=== PATIENT | female | born 1965 | race Caucasian/White ===

== ENCOUNTER 2017-03-08 07:18 | Emergency (ER) | payer BC ==
[2017-03-08 07:26] VITALS: BP 107/79
--- NOTE | 2017-03-08 08:38 | UC ---
Samir Green Billy, scrib[facility] for [facility] on 03/08/17 at 0830 . General HPI - HPI Summary HPI Summary: Patient is a 51 year-old female coming to [facility] for evaluation of three days of sinus congestion, itchy throat, cough, and fever. She measured a temperature of 101.6F at home last night. She reports frequent contact with sick individuals at work. Denies any recent antibiotic treatment. Denies PMHx of respiratory illness. Note: Vital signs stable, O2 sat 97% on room air, 3/10 discomfort, heavy everyday smoker, allergic to sulfa. Nurse's Note: pt states that she began to feel ill sunday. pt had temp max 101.6. pt states the her ears are plugged, cohen, cough, throat itching. - History of Current Complaint Chief Complaint: UCRespiratory Stated Complaint: EARS/NOSE/THROAT CONGEST Time Seen by Provider: 03/08/17 08:23 Hx Obtained From: Patient Onset/Duration: Gradual Onset, Lasting Days, Still Present Timing: Constant Onset Severity: Moderate Current Severity: Moderate Pain Intensity: 3 - Allergy/Home Medications Allergies/Adverse Reactions: Allergies Allergy/AdvReac Type Severity Reaction Status Date / Time Sulfamethoxazole AdvReac Diarrhea Verified 09/19/16 07:39 w/Trimethoprim [From Bactrim] PMH/Surg Hx/FS Hx/Imm Hx Endocrine History Of: Reports: Thyroid Disease - partial thyroid removal Denies: Diabetes Cardiovascular History Of: Denies: Cardiac Disorders, Hypertension, Pacemaker/ICD Respiratory History Of: Denies: COPD, Asthma GI/ History Of: Denies: Ulcer, Renal Disease - Surgical History Surgical History: Yes Surgery Procedure, Year, and Place: CYST - COCCYX,. APPENDECTOMY, BLADDER SUSPENSION, HYSTERECTOMY,. CARPAL TUNNEL - Lt. partial thyroidectomy - Family History Known Family History: Positive: Cardiac Disease, Hypertension, Other - Alzheimers - Social History Occupation: Employed Full-time Alcohol Use: Rare Substance Use Type: None Smoking Status (MU): Heavy Every Day Tobacco Smoker Type: Cigarettes Amount Used/How Often: 1 ppd Length of Time of Smoking/Using Tobacco: 30 yrs Have You Smoked in the Last Year: Yes Household Exposure Type: Cigarettes Review of Systems Constitutional: Fever Skin: Negative Eyes: Negative ENT: Other - sinus congestion, itchy throat Respiratory: Cough Cardiovascular: Negative Gastrointestinal: Diarrhea - hx of IBS Genitourinary: Negative Motor: Negative Neurovascular: Negative Musculoskeletal: Negative Neurological: Negative Psychological: Negative All Other Systems Reviewed And Are Negative: Yes Physical Exam Triage Information Reviewed: Yes Appearance: Well-Appearing, No Pain Distress, Well-Nourished Vital Signs: Initial Vital Signs Temp 97.0 F 03/08/17 07:22 Pulse 97 03/08/17 07:22 Resp 18 03/08/17 07:22 BP 107/79 03/08/17 07:22 Pulse Ox 97 03/08/17 07:22 Vital Signs Reviewed: Yes Eyes: Positive: Conjunctiva Clear ENT: Positive: Pharyngeal erythema - Mild, TMs normal, Other: - Maxillary sinus tenderness to palpation.. Negative: Muffled/hoarse voice Neck: Positive: Supple, No Lymphadenopathy Respiratory: Positive: Chest non-tender, No respiratory distress, Rhonchi - Appreciated in both lung de santiago.. Negative: Wheezing Cardiovascular: Positive: RRR, No Murmur Abdomen Description: Positive: Nontender, No Organomegaly, Soft Bowel Sounds: Positive: Present Musculoskeletal: Positive: Strength Intact, ROM Intact Neurological: Positive: Alert Psychological: Positive: Age Appropriate Behavior Skin: Negative: rashes Course/Dx - Course Course Of Treatment: Medications have been included in the original chart and reviewed. This is a 51 year-old female coming to [facility] for evaluation of three days of sinus congestion, cough, and fever. This is a bronchitis in a heavy smoker. Although the bronchitis may be viral, the patient's significant history of smoking warrants antibiotic treatment at this time. - Differential Dx - Multi-Symptom Provider Diagnoses: Bronchitis Discharge - Discharge Plan Condition: Stable Disposition: HOME Prescriptions: Azithromycin TAB* [Zithromax TAB*] 250 mg PO DAILY #6 tab Patient Education Materials: Acute Bronchitis (ED) Referrals: Nick Zhang JR, PA [Primary Care Provider] - Additional Instructions: Thank you for helping us improve patient care by filling out the MyPoint Survey. WE DISCUSSED: You have bronchitis. At this point, you don't need an inhaler. Begin Zithromax antibiotic. Cut back on smoking as much as you can. Also: COUGH, CONGESTION of CHEST, SINUSES OR EARS: The most important goal is to liquefy all the phlegm and get it out of your head and chest. Any illness causing cough, congestion, sore throat or sinus discomfort can be helped by doing the following: STAND UNDER SHOWER STREAM TO LOOSEN SECRETIONS. STAY AWAY FROM ANY SMOKE OR IRRITANTS. WHAT ELSE CAN HELP RELIEVE YOUR SYMPTOMS: GENERAL TYPES OF MEDICINE THAT MAY HELP DECONGESTANTS: helps relieve stuffiness and clears sinuses. Pseudoephedrine ( Sudafed or generic) is effective but you need to ask the pharmacist for it because it may be kept behind the counter. ANTIHISTAMINES: are NOT helpful in many colds and flus because they can worsen sore throat, dry eyes and mouth and cause drowsiness. Examples are diphenhydramine, doxylamine and chlorpheniramine. They can help dry you out if you are having profuse, clear drainage from the nose. EXPECTORANTS: helps thin mucous in the nose and chest, making it easier to clear the fluid out. Expectorants are in most combination cough/cold remedies and should be taken with plenty of water. Guaifenesin is the most common expectorant and it comes in pill or liquid form. Mucinex is an extended release form of guaifenesin. COUGH SUPPRESANT: reduces the body's cough reflex. Dextromethorphan is in over the counter products, but sometimes narcotics such as codeine or hydrocodone are used to suppress cough. SPECIFIC MEDICATIONS: The most important goal is to liquefy all the phlegm and get it out of your head and chest: The following medicines (in prescription form or you can buy them without prescription) may help: To help with cough: DEXTROMETHORPHAN (Vicks, Robitussin, Nyquil and other brands) To help break up phlegm: GUAIFENESIN (Mucinex, Robitussin, other brands) To help clear congestion: PSEUDOEPHEDRINE (Sudafed, Dimetapp, other brands) TRY TO CLEAR NOSE: AFRIN NASAL SPRAY: 2-3 SPRAYS PER NOSTRIL, TWICE A DAY FOR TWO DAYS ONLY. USEFUL WAYS TO FEEL BETTER WITHOUT MEDICATIONS: STAND UNDER SHOWER STREAM TO LOOSEN SECRETIONS. USE A VAPORIZOR. STAY AWAY FROM ANY SMOKE OR IRRITANTS. USE SALINE NASAL SPRAY TO KEEP FLOW OF MUCOUS FROM NOSTRILS AND SINUSES. CONSIDER USING NETI POT TO HELP WITH ALLERGIES AND CONGESTION IN THE NOSE. USE THIS THREE TIMES A WEEK. YOU CAN GET THIS AT [employer] IN [place] OR VARIOUS DRUGSTORES. DRINK LOTS OF WARM FLUIDS USEFUL HOME REMEDIES: WARM WATER GARGLES, WITH TSP OF SALT PER 8 OUNCES OF WATER, GARGLE FOR A FEW SECONDS AND SPIT OUT; GARGLE AND SPIT OUT; EVERY THREE HOURS. AND/OR: WARM WATER OR TEA, HONEY AND LEMON; 2-3 CUPS A DAY. FOR SORE THROAT: KEEP THROAT MOIST WITH LOZENGES; TEA AND HONEY. USE WARM WATER GARGLES 3-4 TIMES A DAY. FOLLOW UP: RE-CHECK IN 1O DAYS, NEEDED, IF YOU ARE NOT IMPROVING. RETURN HERE OR SEE YOUR PHYSICIAN. RE-CHECK SOONER IF INCREASED PAIN OR TEMPERATURE. The documentation as recorded by the Samir be Billy accurately reflects the service I personally performed and the decisions made by me, Miguel Roe MD.
== END 2017-03-08 08:45 | disposition home or self-care (01) ==
LOC: UCEAST 07:18
DX: J40 Bronchitis, not specified as acute or chronic (principal); Z90.710 Acquired absence of both cervix and uterus; Z88.2 Allergy status to sulfonamides; F17.210 Nicotine dependence, cigarettes, uncomplicated
CPT/HCPCS: 99212; G0463

== ENCOUNTER 2017-06-23 14:57 | Emergency (ER) | payer BC ==
[2017-06-23 15:03] VITALS: BP 107/70
--- NOTE | 2017-06-23 16:08 | RAD ---
Indication: Right knee pain. 4 views of the right knee demonstrates no fracture. Degenerative changes of the patellofemoral joint is noted. No joint effusion is noted. IMPRESSION: No fracture is identified. No joint effusion is noted.
--- NOTE | 2017-06-23 17:16 | UC ---
Kendall Green Alfonso, scribed for William Brar MD on 06/23/17 at 1547 . Lower Extremity/Ankle HPI - HPI Summary HPI Summary: This patient is a 51 year old F presenting to [facility] with a chief complaint of right knee pain since 5 days ago. She reports 5 days ago I fell in my flip- flops and fell full force squarely on my right knee. The CC is described as aching, burning and stabbing. The patient rates the pain 7/10 in severity. Symptoms aggravated by touch and ambulation, and alleviated by nothing. She reports icing the knee these past 5 days. Patient reports~right knee swelling, right knee bruising, and rib soreness. Patient denies~hip pain, head pain, and neck pain. - History of Current Complaint Chief Complaint: UCLowerExtremity Stated Complaint: KNEE INJURY Time Seen by Provider: 06/23/17 15:12 Hx Obtained From: Patient Hx Last Menstrual Period: n/a Onset/Duration: Sudden Onset, Lasting Days - 5, Still Present Severity Initially: Moderate Severity Currently: Moderate Pain Intensity: 7 Pain Scale Used: 0-10 Numeric Aggravating Factor(s): Ambulation, Other - Touch Alleviating Factor(s): Nothing - Allergies/Home Medications Allergies/Adverse Reactions: Allergies Allergy/AdvReac Type Severity Reaction Status Date / Time Sulfamethoxazole AdvReac Diarrhea Verified 09/19/16 07:39 w/Trimethoprim [From Bactrim] PMH/Surg Hx/FS Hx/Imm Hx - Additional Past Medical History Additional PMH: Carpel tunnel. - Surgical History Surgical History: Yes Surgery Procedure, Year, and Place: CYST - COCCYX,. APPENDECTOMY, BLADDER SUSPENSION, HYSTERECTOMY,. CARPAL TUNNEL - Lt. partial thyroidectomy - Family History Known Family History: Positive: Cardiac Disease, Hypertension, Other - Alzheimers - Social History Alcohol Use: Rare Substance Use Type: None Smoking Status (MU): Heavy Every Day Tobacco Smoker Type: Cigarettes Amount Used/How Often: 1 ppd Length of Time of Smoking/Using Tobacco: 30 yrs Have You Smoked in the Last Year: Yes Household Exposure Type: Cigarettes Review of Systems Constitutional: Other - Negative fever. Musculoskeletal: Other: - Positive right knee pain, right knee swelling, right knee bruising, and rib soreness; negative hip pain, head pain, and neck pain. All Other Systems Reviewed And Are Negative: Yes Physical Exam Triage Information Reviewed: Yes Vital Signs: Initial Vital Signs Temp 96.9 F 06/23/17 14:59 Pulse 94 06/23/17 14:59 Resp 18 06/23/17 14:59 BP 107/70 06/23/17 14:59 Pulse Ox 98 06/23/17 14:59 Vital Signs Reviewed: Yes - Additional Comments The patient is well-nourished in no acute distress and in no acute pain. The skin is warm and dry and skin color reflects adequate perfusion. HEENT: The head is normocephalic and atraumatic. The pupils are equal and reactive. The conjunctivae are clear and without drainage. Nares are patent and without drainage. Mouth reveals moist mucous membranes and the throat is without erythema and exudate. The external ears are intact. The ear canals are patent and without drainage. The tympanic membranes are intact. Neck is supple with full range of motion and non-tender. There are no carotid bruits. There is no neck vein distension. Respiratory: Chest is non-tender. Lungs are clear to auscultation and breath sounds are symmetrical and equal. Cardiovascular: Heart is regular rate and rhythm. There is no murmur or rub auscultated. There is no peripheral edema and pulses are symmetrical and equal. Abdomen: The abdomen is soft and non-tender. There are normal bowel sounds heard in all four quadrants and there is no organomegaly palpated. Musculoskeletal: There is no back pain noted. There is good capillary refill. RLE: Flexion at 90 and extension at 10 degrees of right knee. Marked ecchymosis of right knee. Tenderness at insertion of patellar. Lateral collateral ligament tenderness with no lax. Medial collateral ligament tenderness with more lax. ACL and PCL not accessed. Unable to assess meniscus secondary to swelling. Distal neurovascular intact. No ankle or hip tenderness. Neurological: Patient is alert and oriented to person, place and time. The patient has symmetrical motor strength in all four extremities. Cranial nerves are grossly intact. Psychiatric: The patient has an appropriate affect and does not exhibit any anxiety or depression. Diagnostics - Laboratory Diagnostic Studies Completed/Ordered: Right knee X-Ray reveals, per radiologist , no fracture is identified and no joint fusion is noted. Lower Extremity Course/Dx - Course Course Of Treatment: This patient is a 51 year old F presenting to [facility] with a chief complaint of right knee pain since 5 days ago. She reports 5 days ago I fell in my flip-flops and fell full force squarely on my right knee. The CC is described as aching, burning and stabbing. The patient rates the pain 7/10 in severity. Symptoms aggravated by touch and ambulation, and alleviated by nothing. She reports icing the knee these past 5 days. Patient reports right knee swelling, right knee bruising, and rib soreness. Patient denies hip pain, head pain, and neck pain. Right knee X-Ray reveals no fracture is identified and no joint fusion is noted. Patient will be discharged with a knee immobilizer , prescription for Hastings, and follow up from PCP. The patient is agreeable with this plan. - Differential Dx/Diagnosis Differential Diagnosis/HQI/PQRI: Contusion, Fracture (Closed), Other - internal derrangement Provider Diagnoses: Right knee contusion. Discharge - Discharge Plan Condition: Stable Disposition: HOME Prescriptions: HYDROcodone/ACETAMIN 5-325 MG* [Hastings 5-325 TAB*] 1 tab PO Q6H PRN #20 tab MDD 4 PRN Reason: pain Patient Education Materials: Knee Pain (ED), Contusion in Adults (ED) Referrals: Nick Zhang JR PA [Primary Care Provider] - 3 Days Additional Instructions: Wear knee immobilizer and elevate your knee often. Follow up with your primary care provider within 3 days. The documentation as recorded by the Kendall be Alfonso accurately reflects the service I personally performed and the decisions made by me, William Brar MD.
== END 2017-06-23 16:20 | disposition home or self-care (01) ==
LOC: UCEAST 14:57
DX: S80.01XA Contusion of right knee, initial encounter (principal); W19.XXXA Unspecified fall, initial encounter; Z88.2 Allergy status to sulfonamides; F17.210 Nicotine dependence, cigarettes, uncomplicated
CPT/HCPCS: 99213; G0463

== ENCOUNTER 2018-06-26 12:07 | Day surgery (SDC) | payer BC ==
[~2018-06-26 12:07] MED LIST: Buffered Lidocaine 0.9% SYRIN* 5 ML/SYR SYRINGE INTRADERM ONE; Dexamethasone IV* 4 MG/ML 1 ML (4 MG) IV SLOW PU ONE; DiMENhydriNATE IV* 50 MG/ML VIAL IV PUSH PRN; Famotidine IV* 10 MG/ML 2 ML (20 mg) IV ONE; Morphine INJ* 2 MG/ML 1 ML SYRINGE (TWO MG - NEW SYRINGE VERSION) IV PRN; Naloxone* 0.4 MG/ML 1 ML VIAL IV PRN; Ondansetron TAB* 4 MG PO ONE; PROCHLORPERAZINE INJ 5 MG/ML 2 ML VIAL IV PRN; fentaNYL* 50 MCG/ML 2 ML VIAL (100 MCG VIAL) IV PRN; oxyCODONE/Acetamin 5/325 MG* TAB PO PRN
[2018-06-26] MEDS ORDERED: Famotidine IV* 10 MG/ML 2 ML (20 mg) ONE (12:25)
[2018-06-26] MEDS ORDERED: Dexamethasone IV* 4 MG/ML 1 ML (4 MG) ONE (12:25)
[2018-06-26] MEDS ORDERED: Ondansetron ODT TAB* 4 MG ONE (12:25)
[2018-06-26] MEDS ORDERED: fentaNYL* 50 MCG/ML 2 ML VIAL (100 MCG VIAL) ONE (12:45)
[2018-06-26] MEDS ORDERED: Atracurium* 10 MG/ML 10 ML VIAL ONE (12:46)
[2018-06-26] MEDS ORDERED: Midazolam* 1 MG/ML 5 ML VIAL (5 MG) ONE (12:46)
[2018-06-26] MEDS ORDERED: KETAMINE HCL* 50 MG/ML 10 ML VIAL ONE (13:45)
[2018-06-26] MEDS ORDERED: Lidocaine 2% PF* 10 ML AMP ONE (13:53)
[2018-06-26] MEDS ORDERED: Lidocaine 2% EPI 1:200000 MPF*10-20 ML VIAL ONE (13:53)
[2018-06-26] MEDS ORDERED: EPHEDrine (Pressors)* 50 MG/ML VIAL ONE (14:06)
[2018-06-26] MEDS ORDERED: PROCHLORPERAZINE INJ 5 MG/ML 2 ML VIAL ONE ×2 (14:06→15:40)
[2018-06-26] MEDS ORDERED: Propofol* 10 MG/ML 20 ML BTL IV PUSH ONE (14:06)
[2018-06-26] MEDS ORDERED: Neostigmine Methylsulfate* 1 MG/ML 10 ML VIAL (1 mg/ml) ONE (14:06)
[2018-06-26] MEDS ORDERED: Lidocaine 2% PF * 5 ML VIAL ONE (14:06)
[2018-06-26] MEDS ORDERED: Glycopyrrolate IV* 0.2 MG/ML 1 ML VIAL ONE ×2 (14:06→14:18)
[2018-06-26] MEDS ORDERED: Labetalol IV* 5 MG/ML 20 ML VIAL ONE (14:34)
[2018-06-26 15:33] VITALS: BP 126/70
--- NOTE | 2018-06-27 02:46 | PRO ---
BRONCHOSCOPY REPORT: DATE OF PROCEDURE: 06/26/18 PROCEDURE PERFORMED: Bronchoscopy with endobronchial ultrasound guided fine needle aspiration from L4, station 7 lymph node. ANESTHESIA: General anesthesia. ANESTHESIOLOGIST: Dr. Cooper. PREPROCEDURAL DIAGNOSIS: Large lung mass, mediastinal adenopathy. POSTPROCEDURAL DIAGNOSIS: Lung cancer. DESCRIPTION OF PROCEDURE: The patient is a smoker with significant smoking history, recently found to have abnormal chest x-ray done for evaluation of hemoptysis and cough. The patient had CT chest which showed large right upper lobe lung mass with dense lymphadenopathy. Informed consent was obtained from the patient prior to the procedure after all the risks and benefits were thoroughly explained. The patient was intubated with size 8.5 endotracheal tube. Appropriate time-out was agreed on by attending staff prior to the procedure. Flexible Olympus bronchoscope was inserted through ET tube for airway inspection. ET tube positioning was confirmed to be about 2 cm above the level of husam. Bronchoscope was then advanced into left bronchial tree which was inspected. No obvious endobronchial lesions were noted. The patient noted to have thin phlegm with streaks of blood. Bronchoscope was then advanced into the right bronchial tree which was then inspected. Blood stained frothy secretions were emanating from right mainstem bronchus. Right upper lobe bronchus was significantly narrowed. Right intermediate bronchus was also narrowed from external compression from the tumor. Bronchoscope could not be advanced into the right upper lobe bronchus. Mucosa seem to be involved and is bleeding with minimal suctioning. Bronchoscope was then advanced into the right lower lobe bronchus. There is evidence of narrowing of right middle lobe and right lower lobe bronchus. Mucosa appeared to be involved with the tumor. The bronchoscope was then advanced further. It could be passed but definitely right lower lobe bronchus was significantly narrowed from external compression. No obvious endobronchial lesions were noted, but however, the mucosa might have been involved from tumor spread into it from inside the lung. Minimal suctioning resulting in bleeding. Bronchoscope was then withdrawn after the secretions were suctioned out. EBUS bronchoscope was then inserted. L4 was minimally enlarged and was accessed with 1 pass. Rapid onsite evaluation revealed good lymphatic tissue with no malignant cells. There was no evidence of significant lymphadenopathy on the left side. Station 7 lymph node was then accessed with 5 passes. Rapid onsite evaluate revealed malignant cells. Rest of specimen was placed in formalin. The patient tolerated the procedure well. The patient was extubated and was seen in Recovery in optimal condition. [id number]/[facility] #: [id number] [facility] HOSPITALCarli
== END 2018-06-26 16:02 | disposition home or self-care (01) ==
LOC: OR 12:07
PROVIDERS: ATTEND Internal Medicine
DX: C77.1 Secondary and unspecified malignant neoplasm of intrathoracic lymph nodes (principal); J98.4 Other disorders of lung; R04.2 Hemoptysis; R05 Cough; Z87.891 Personal history of nicotine dependence
CPT/HCPCS: 81445; 88172; 88173; 88305; 88341; 88342; 88360; A9270-GY; J0780; J1100; J2001; J2250; J2704; J2710; J3010

== ENCOUNTER 2018-10-24 22:25 | Emergency (ER) | payer BC ==
[2018-10-24] MEDS ORDERED: Ondansetron INJ* 2 MG/ML VIAL IV ONE (23:06)
[2018-10-24] MEDS ORDERED: NS 0.9% 1000 ML* 1,000 ML IV ONE (23:06)
[2018-10-24] MEDS ORDERED: Morphine VIAL* 10 MG/ML 1 ML VIAL IV ONE (23:06)
[2018-10-25] MEDS ORDERED: Morphine VIAL* 4 MG/ML VIAL (1 ml vial) ONE (00:03)
[2018-10-25] MEDS ORDERED: Morphine VIAL* 4 MG/ML VIAL (1 ml vial) IV ONE (00:19)
--- NOTE | 2018-10-25 00:28 | ED ---
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 Headache described as diffuse, improves with ibuprofen. States history of mild headaches, denies history of headache like this. Denies focal deficits, neck stiffness, fever, cough, sore throat, CP, SOB, abdominal pain, change in urine, change in BM, vaginal symptoms. Ankle history is lung cancer with metastases to brain. Currently on chemotherapy, last treatment 3 weeks ago. No anti-coag. - History Of Current Complaint Chief Complaint: EDHeadache Stated Complaint: HEADACHE Time Seen by Provider: 10/24/18 22:54 Hx Obtained From: Patient Hx Last Menstrual Period: n/a Onset/Duration: Sudden Onset Initially Headache Was: Severe Currently Pain Is: Severe Timing: Intermittent, Lasting: Character: Throbbing Aggravating Factor: Nothing, Bright Lights Allevating Factors: Nothing Associated Signs And Symptoms: Nausea, Vomiting - Risk Factors SAH Risk Factors: Negative - Allergies/Home Medications Allergies/Adverse Reactions: Allergies Allergy/AdvReac Type Severity Reaction Status Date / Time sulfamethoxazole AdvReac Severe Diarrhea Verified 08/19/18 15:44 [From Bactrim] trimethoprim [From Bactrim] AdvReac Severe Diarrhea Verified 08/19/18 15:44 PMH/Surg Hx/FS Hx/Imm Hx Endocrine/Hematology History: Reports: Hx Thyroid Disease - partial thyroidectomy Denies: Hx Diabetes Cardiovascular History: Denies: Hx Hypertension, Hx Pacemaker/ICD Respiratory History: Denies: Hx Asthma, Hx Chronic Obstructive Pulmonary Disease (COPD) GI History: Reports: Hx Gastroesophageal Reflux Disease, Hx Irritable Bowel Denies: Hx Ulcer History: Denies: Hx Dialysis, Hx Renal Disease Musculoskeletal History: Reports: Hx Bursitis - left hip, Hx Tendonitis - hx of - none at this time Sensory History: Reports: Hx Contacts or Glasses - glasses Denies: Hx Hearing Aid Opthamlomology History: Reports: Hx Contacts or Glasses - glasses Psychiatric History: Denies: Hx Panic Disorder - Cancer History Cancer Type, 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 APPENDECTOMY, BLADDER SUSPENSION, HYSTERECTOMY,. CARPAL TUNNEL - Lt. partial thyroidectomy. bronchoscopy/EBUS 2018 Hx Anesthesia Reactions: Yes - quite sick after thyroid removal Infectious Disease History: No Infectious Disease History: Denies: Hx Clostridium Difficile, Hx Hepatitis, Hx Human Immunodeficiency Virus (HIV), Hx of Known/Suspected MRSA, Hx Shingles, Hx Tuberculosis, Hx Known/ Suspected VRE, Hx Known/Suspected VRSA, History Other Infectious Disease, Traveled Outside the [place] in Last 30 Days - Family History Known Family History: Positive: Cardiac Disease, Hypertension, Other - Alzheimers - Social History Alcohol Use: None Substance Use Type: Reports: None Smoking Status (MU): Former Smoker Type: Cigarettes Amount Used/How Often: 1 ppd smoked approx 35 years Length of Time of Smoking/Using Tobacco: 30 yrs Have You Smoked in the Last Year: Yes Review of Systems Constitutional: Negative Positive: Photophobia ENT: Negative Cardiovascular: Negative Respiratory: Negative Positive: Vomiting, Nausea Genitourinary: Negative Musculoskeletal: Negative Skin: Negative Positive: Headache Psychological: Normal All Other Systems Reviewed And Are Negative: Yes Physical Exam - Summary Physical Exam Summary: Neuro exam normal. Triage Information Reviewed: Yes Vital Signs On Initial Exam: Initial Vitals Temp Pulse Resp BP Pulse Ox 96.3 F 86 18 135/87 97 10/24/18 22:44 10/24/18 22:44 10/24/18 22:44 10/24/18 22:44 10/24/18 22:44 Vital Signs Reviewed: Yes Appearance: Positive: Well-Appearing Skin: Positive: Warm Head/Face: Positive: Normal Head/Face Inspection Eyes: Positive: Normal ENT: Positive: Normal ENT inspection Neck: Positive: Supple Respiratory/Lung Sounds: Positive: Clear to Auscultation Cardiovascular: Positive: Normal Abdomen Description: Positive: Nontender Musculoskeletal: Positive: Normal Neurological: Positive: Normal Psychiatric: Positive: Normal AVPU Assessment: Alert - Loring Coma Scale Best Eye Response: 4 - Spontaneous Best Motor Response: 6 - Obeys Commands Best Verbal Response: 5 - Oriented Coma Scale Total: 15 Diagnostics - Vital Signs Vital Signs Temp Pulse Resp BP Pulse Ox 10/25/18 00:19 18 10/24/18 22:44 96.3 F 86 18 135/87 97 - Laboratory Result Diagrams: 10/25/18 00:24 10/25/18 00:24 Lab Statement: Any lab studies that have been ordered have been reviewed, and results considered in the medical decision making process. 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 Headache described as diffuse, improves with ibuprofen. States history of mild headaches, denies history of headache like this. Denies focal deficits, neck stiffness, fever, cough, sore throat, CP, SOB, abdominal pain, change in urine, change in BM, vaginal symptoms. Ankle history is lung cancer with metastases to brain. Currently on chemotherapy, last treatment 3 weeks ago. No anti-coag. Physical exam:Neuro exam normal. Vital signs within normal limits and stable. CT brain negative for acute process. - Diagnoses Provider Diagnoses: Headache Discharge - Sign-Out/Discharge Documenting (check all that apply): Patient Departure - Discharge Plan Condition: Stable Disposition: HOME Patient Education Materials: Acute Headache (ED) Referrals: Nick Zhang JR, PA [Primary Care Provider] - Additional Instructions: Follow-up with your oncologist at your appointment tomorrow. Return to the ED for any new or worsening symptoms - Billing Disposition and Condition Condition: STABLE Disposition: Home
[2018-10-25 00:44] LABS: Hematocrit 38 % (35-47); Hemoglobin 12.9 g/dl (12.0-16.0); Mean Corpuscular HGB Conc 34 g/dl (31-36); Mean Corpuscular Hemoglobin 31 pg (27-31); Mean Corpuscular Volume 90 fL (80-97); Mean Platelet Volume 6.1 fL (7.4-10.4); Platelet Count 305 10^3/ul (150-450); Red Blood Count 4.21 10^6/ul (4.00-5.40); Red Cell Distribution Width 26 % (10.5-15); White Blood Count 6.6 10^3/ul (3.5-10.8)
[2018-10-25 00:59] LABS: EGFR Non-African American 76.7 (>60)
[2018-10-25 01:02] LABS: ABS Basophils 0 10^3/ul (0-0.2); ABS Eosinophils 0 10^3/ul (0-0.6); ABS Lymphocytes 2.4 10^3/ul (1.0-4.8); ABS Monocytes 0.5 10^3/ul (0-0.8); ABS Neutrophils 3.7 10^3/ul (1.5-7.7); ABS Nucleated RBC 0 10^3/ul; Eosinophil % 0.3 %; Lymphocyte % 35.8 %; Nucleated Red Blood Cells % 0.1
[2018-10-25] MEDS ORDERED: Ketorolac INJ* 30 MG/ML 1 ML VIAL IV PUSH ONE (01:09)
[2018-10-25] MEDS ORDERED: Metoclopramide IV* 5 MG/ML 2 ML VIAL IV ONE (01:10)
[2018-10-25] MEDS ORDERED: diPHENhydraMINE IV* 50 MG/ML 1 ml VIAL (BENADRYL) IV ONE (01:10)
[2018-10-25] MEDS ORDERED: diPHENhydraMINE PO* 50 MG ONE (01:18)
[2018-10-25] MEDS ORDERED: HYDROcodone/ACETAMIN 5-325 MG* 1 TAB PO ONE (02:14)
[2018-10-25 02:32] VITALS: BP 148/92
== END 2018-10-25 02:42 | disposition home or self-care (01) ==
LOC: ED 22:25
DX: R51 Headache (principal); R11.2 Nausea with vomiting, unspecified; Z87.891 Personal history of nicotine dependence
CPT/HCPCS: 36415; 70450; 80053; 83605; 85025; 86140; 96361; 96374; 96375; 99283; A9270-GY; J1642; J1885; J2270; J2405; J2765

== ENCOUNTER → 2018-11-16 10:22 | Emergency (ER) | payer BC ==
[~2018-11-16 10:22] MED LIST changes: -Buffered Lidocaine 0.9% SYRIN* 5 ML/SYR SYRINGE INTRADERM ONE; -Dexamethasone IV* 4 MG/ML 1 ML (4 MG) IV SLOW PU ONE; -DiMENhydriNATE IV* 50 MG/ML VIAL IV PUSH PRN; -Famotidine IV* 10 MG/ML 2 ML (20 mg) IV ONE; +Ketorolac INJ* 30 MG/ML 1 ML VIAL IV PUSH ONE; +Metoclopramide IV* 5 MG/ML 2 ML VIAL IV ONE; -Morphine INJ* 2 MG/ML 1 ML SYRINGE (TWO MG - NEW SYRINGE VERSION) IV PRN; +NS 0.9% 1000 ML* 1,000 ML IV ONE; -Naloxone* 0.4 MG/ML 1 ML VIAL IV PRN; -Ondansetron TAB* 4 MG PO ONE; -PROCHLORPERAZINE INJ 5 MG/ML 2 ML VIAL IV PRN; +diPHENhydraMINE IV* 50 MG/ML 1 ml VIAL (BENADRYL) IV ONE; +diPHENhydraMINE PO* 25 MG ONE; +diPHENhydraMINE PO* 25 MG PO ONE; -fentaNYL* 50 MCG/ML 2 ML VIAL (100 MCG VIAL) IV PRN; +fentaNYL* 50 MCG/ML 2 ML VIAL (100 MCG VIAL) IV SLOW PU ONE; +hydrALAZINE IV* 20 MG/ML VIAL IV SLOW PU ONE; -oxyCODONE/Acetamin 5/325 MG* TAB PO PRN
--- NOTE | 2018-11-16 10:56 | ED ---
Headache - HPI Summary HPI Summary: A 53 y/o female brought in by ambulance presents to the ED c/o headache. Additionally c/o nausea. Currently, the patient is still experiencing a headache reaching 6-7/10 in severity. In the ED room, the patient has a pulse of 89 BPM, O2 saturation of 95%, and blood pressure of 150/102. As per triage, "severe left sided headache, right side foot tingling/numbness, moved to right arm @0830, mouth felt funny". According to the patient, she has a history of migraine headaches. She noted that she has a slight weakness on the right side that started in the toes and worked its way up to right arm and lip. Patient has difficulty laying down in ED room during examination due to nausea. Home Medications Medication Instructions Recorded Confirmed Type Ibuprofen TAB* [Motrin TAB* 800 MG] 800 mg PO Q6H PRN 06/13/16 07/18/18 History Albuterol HFA INHALER* [Ventolin 2 puff INH Q6H PRN 06/25/18 07/18/18 History HFA Inhaler*] Acetaminophen/Diphenhydramine 2 each PO BEDTIME 07/17/18 07/18/18 History [Acetaminophen Pm Caplet] Amoxicillin PO (*) [Amoxicillin 1,000 mg PO BID 07/17/18 07/18/18 History 500 MG CAP*] - History Of Current Complaint Chief Complaint: EDHeadache Stated Complaint: HEADACHE Time Seen by Provider: 11/16/18 10:29 Hx Obtained From: Patient Hx Last Menstrual Period: n/a Onset/Duration: Sudden Onset, Still Present Initially Headache Was: Moderate - 7/10 Currently Pain Is: Moderate - 7/10 Timing: Constant Character: Migraine Location of Headache: Diffuse Radiates to: NO Aggravating Factor: Nothing Allevating Factors: Nothing Associated Signs And Symptoms: Nausea - Allergies/Home Medications Allergies/Adverse Reactions: Allergies Allergy/AdvReac Type Severity Reaction Status Date / Time sulfamethoxazole AdvReac Severe Diarrhea Verified 11/04/18 08:55 [From Bactrim] trimethoprim [From Bactrim] AdvReac Severe Diarrhea Verified 11/04/18 08:55 PMH/Surg Hx/FS Hx/Imm Hx Endocrine/Hematology History: Reports: Hx Thyroid Disease - partial thyroidectomy Denies: Hx Diabetes Cardiovascular History: Reports: Hx Hypertension Denies: Hx Pacemaker/ICD Respiratory History: Denies: Hx Asthma, Hx Chronic Obstructive Pulmonary Disease (COPD) GI History: Reports: Hx Gastroesophageal Reflux Disease, Hx Irritable Bowel Denies: Hx Ulcer History: Denies: Hx Dialysis, Hx Renal Disease Musculoskeletal History: Reports: Hx Bursitis - left hip, Hx Tendonitis - hx of - none at this time Sensory History: Reports: Hx Contacts or Glasses - glasses Denies: Hx Hearing Aid Opthamlomology History: Reports: Hx Contacts or Glasses - glasses Psychiatric History: Denies: Hx Panic Disorder - Cancer History Cancer Type, 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 APPENDECTOMY, BLADDER SUSPENSION, HYSTERECTOMY,. CARPAL TUNNEL - Lt. partial thyroidectomy. bronchoscopy/EBUS 2018 Hx Anesthesia Reactions: Yes - quite sick after thyroid removal Infectious Disease History: No Infectious Disease History: Denies: Hx Clostridium Difficile, Hx Hepatitis, Hx Human Immunodeficiency Virus (HIV), Hx of Known/Suspected MRSA, Hx Shingles, Hx Tuberculosis, Hx Known/ Suspected VRE, Hx Known/Suspected VRSA, History Other Infectious Disease, Traveled Outside the [place] in Last 30 Days - Family History Known Family History: Positive: Cardiac Disease, Hypertension, Other - Alzheimers - Social History Alcohol Use: None Substance Use Type: Reports: None Smoking Status (MU): Former Smoker Type: Cigarettes Amount Used/How Often: 1 ppd smoked approx 35 years Length of Time of Smoking/Using Tobacco: 30 yrs Have You Smoked in the Last Year: Yes Review of Systems Negative: Fever Positive: Nausea Positive: Headache, Weakness All Other Systems Reviewed And Are Negative: Yes Physical Exam - Summary Physical Exam Summary: VITAL SIGNS: Reviewed. GENERAL: Patient is a well-developed and nourished female who is lying comfortable in the stretcher. Patient is not in any acute respiratory distress. HEAD AND FACE: No signs of trauma. No ecchymosis, hematomas or skull depressions. No sinus tenderness. EYES: PERRLA, EOMI x 2, No injected conjunctiva, no nystagmus. EARS: Hearing grossly intact. Ear canals and tympanic membranes are within normal limits. MOUTH: Oropharynx within normal limits. NECK: Supple, trachea is midline, no adenopathy, no JVD, no carotid bruit, no c- spine tenderness, neck with full ROM. CHEST: Symmetric, no tenderness at palpation LUNGS: Clear to auscultation bilaterally. No wheezing or crackles. CVS: Regular rate and rhythm, S1 and S2 present, no murmurs or gallops appreciated. ABDOMEN: Soft, non-tender. No signs of distention. No rebound no guarding, and no masses palpated. Bowel sounds are normal. EXTREMITIES: FROM in all major joints, no edema, no cyanosis or clubbing. NEURO: Alert and oriented x 3. No acute neurological deficits. Speech is normal and follows commands. SKIN: Dry and warm GCS: 15 Triage Information Reviewed: Yes Vital Signs On Initial Exam: Initial Vitals Temp Pulse Resp BP Pulse Ox 97.1 F 94 8 155/127 99 11/16/18 10:29 11/16/18 10:29 11/16/18 10:29 11/16/18 10:29 11/16/18 10:29 Vital Signs Reviewed: Yes - [place] Coma Scale Best Eye Response: 4 - Spontaneous Best Motor Response: 6 - Obeys Commands Best Verbal Response: 5 - Oriented Coma Scale Total: 15 Diagnostics - Vital Signs Vital Signs Temp Pulse Resp BP Pulse Ox 11/16/18 10:30 90 16 150/102 100 11/16/18 10:29 97.1 F 92 8 155/127 99 - Laboratory Result Diagrams: 11/16/18 11:00 11/16/18 11:00 Lab Statement: Any lab studies that have been ordered have been reviewed, and results considered in the medical decision making process. - CT BRAIN CT CT Interpretation Completed By: Radiologist - CT findings are most compatible with mild microvascular disease without identification of acute intracranial abnormality. ED PHYSICIAN REVIEWED THIS RADIOLOGY REPORT. - EKG 1038 Cardiac Rate: NL - 86 BPM EKG Rhythm: Sinus Rhythm - 86 BPM Summary of EKG Findings: NO ST ELEVATIONS. Headache Course/Dx - Course Assessment/Plan: A 53 y/o female brought in by ambulance presents to the ED c/o headache. Additionally c/o nausea. Currently, the patient is still experiencing a headache reaching 6-7/10 in severity. In the ED room, the patient has a pulse of 89 BPM, O2 saturation of 95%, and blood pressure of 150/102. As per triage, "severe left sided headache, right side foot tingling/numbness, moved to right arm @0830, mouth felt funny". According to the patient, she has a history of migraine headaches. She noted that she has a slight weakness on the right side that started in the toes and worked its way up to right arm and lip. Patient has difficulty laying down in ED room during examination due to nausea. Blood work without any significant abnormality except for glucose of 184 and lactic a single 3. Head CT impression: Shows no acute intracranial pathology. In the ED course the patient was given Benadryl and Reglan and fentanyl for the pain. The patients headache has significantly improved and she is no longer nauseous. I did give the patient hydralazine since the patients blood pressure is elevated. After medications the patients symptoms have subsided. The patient is no longer symptomatic. The patients headache is resolved and the pain is 0 out of 10. The patient has a normal neurological exam before discharge. The patient is ambulating home with a good steady walk. At this point, it doesnt sound that the patient is living with a hemorrhagic or ischemic CVA. The patient is feeling better therefore the patient discharged home with follow-up with PCP. Patient has no further questions and no concerns. I discussed all the findings and test results with the patient. Patient was instructed to return to the emergency room immediately if any of the symptoms return or worsens. Plan of care was discussed with the patient and understands and agrees. All questions were answered at patient satisfaction. There were no further complaints or concerns. Lung exam before discharge: CTA B/ L. Good air exchange. No wheezing or crackles heard. CVS: S1 and S2 present. No murmurs appreciated. Patient is alert and oriented x 3. Patient is hemodynamically stable. Patient will be discharged home with follow up PCP in the next 2-3 days. - Diagnoses Differential Diagnosis/HQI/PQRI: CVA, TIA, Epidural Hematoma, Subdural Hematoma , Migraine, Sinus Headache, Subarachnoid Hemorrhage, Tension Headache Provider Diagnoses: Headache, Uncontrolled hypertension Discharge - Sign-Out/Discharge Documenting (check all that apply): Patient Departure - DISCHARGE - Discharge Plan Condition: Stable Disposition: HOME Patient Education Materials: Acute Headache (ED) Referrals: Nick Zhang JR, PA [Primary Care Provider] - 3 Days Additional Instructions: FOLLOW UP WITH PRIMARY CARE PROVIDER IN 3 DAYS. RETURN TO ED FOR ANY NEW OR WORSENING SYMPTOMS. - Billing Disposition and Condition Condition: STABLE Disposition: Home - Attestation Statements Document Initiated by Scribe: Yes Documenting Scribe: Renato Hayes Provider For Whom Tae is Documenting (Include Credential): Chevy Lezama MD Scribe Attestation: Renato Green, scribed for Chevy Lezama MD on 11/17/18 at 0818. Scribe Documentation Reviewed: Yes Provider Attestation: The documentation as recorded by the scribe, Renato Hayes accurately reflects the service I personally performed and the decisions made by me, Chevy Lezama MD Status of Scribe Document: Viewed NIH Scale - NIH Scale Level of Consciousness: Alert/Keenly Responsive Ask Patient the Month and His/Her Age: Both Correct Ask Pt to Open/Close Eyes and Bit Tripoler/Release Non-Paretic Hand: Both Correctly Best Gaze (Only Horizontal Eye Movement): Normal Visual Field Testing: No Visual Loss Facial Paresis-Pt to Smile & Close Eyes or Grimace Symmetry: Normal/Symmetrical Motor Function - Right Arm: No Drift-Holds 10 Seconds Motor Function - Left Arm: No Drift-Holds 10 Seconds Motor Function - Right Leg: No Drift-Holds 10 Seconds Motor Function - Left Leg: No Drift-Holds 10 Seconds Limb Ataxia-Must be out of Proportion to Weakness Present: Absent Sensory (Use Pinprick to Test Arms/Legs/Trunk/Face): Normal Best Language (Describe Picture, Name Items): No Aphasia Dysarthria (Read Several Words): Normal Extinction and Inattention: No Abnormality Total Score: 0 Attestations Scribe Attestation: IDr. Lezama personally performed the services described in this documentation as scribed in my presence and it is both accurate and complete. User Type: Provider with Scribe Provider Attestation: The documentation recorded by the brittibe accurately reflects the service I personally performed and the decisions made by me.
[2018-11-16 11:09] LABS: Hematocrit 38 % (35-47); Hemoglobin 12.9 g/dl (12.0-16.0); Mean Corpuscular HGB Conc 34 g/dl (31-36); Mean Corpuscular Hemoglobin 32 pg (27-31); Mean Corpuscular Volume 94 fL (80-97); Mean Platelet Volume 5.8 fL (7.4-10.4); Platelet Count 279 10^3/ul (150-450); Red Blood Count 4.04 10^6/ul (4.00-5.40); Red Cell Distribution Width 18 % (10.5-15); White Blood Count 7.1 10^3/ul (3.5-10.8)
[2018-11-16 11:14] LABS: INR 0.85 (0.77-1.02)
[2018-11-16 11:23] LABS: Albumin 3.9 g/dL (3.2-5.2); Albumin/Globulin Ratio 1.4 (1-3); BUN/Creatinine Ratio 26.4 (8-20); EGFR Non-African American 68.6 (>60); Globulin 2.7 g/dL (2-4); Potassium 3.6 mmol/L (3.5-5.0); Total Bilirubin 0.5 mg/dL (0.2-1.0); Total Protein 6.6 g/dL (6.4-8.9)
[2018-11-16 11:28] LABS: ABS Basophils 0 10^3/ul (0-0.2); ABS Eosinophils 0 10^3/ul (0-0.6); ABS Lymphocytes 0.8 10^3/ul (1.0-4.8); ABS Monocytes 0.5 10^3/ul (0-0.8); ABS Neutrophils 5.8 10^3/ul (1.5-7.7); ABS Nucleated RBC 0 10^3/ul; Eosinophil % 0.1 %; Lymphocyte % 11.5 %; Nucleated Red Blood Cells % 0
[2018-11-16 11:46] LABS: Erythrocyte Sed Rate 10 mm/Hr (0-30)
[2018-11-16 14:02] VITALS: BP 140/86
== END | disposition home or self-care (01) ==
LOC: ED 10:22
DX: R51 Headache (principal); I16.0 Hypertensive urgency; E07.9 Disorder of thyroid, unspecified; K21.9 Gastro-esophageal reflux disease without esophagitis; K58.9 Irritable bowel syndrome, unspecified; C71.9 Malignant neoplasm of brain, unspecified; C79.51 Secondary malignant neoplasm of bone; Z87.891 Personal history of nicotine dependence
CPT/HCPCS: 36415; 70450; 80053; 82375; 83605; 85025; 85610; 85652; 86850; 86900; 86901; 93005; 99284; A9270-GY; J0360; J1885; J2765; J3010

== ENCOUNTER 2019-01-19 20:41 | Emergency (ER) | payer BC ==
[2019-01-19] MEDS ORDERED: HYDROmorphone INJ1* 1 MG/ML SYRINGE IV SLOW PU ONE (21:01)
[2019-01-19] MEDS ORDERED: Metoclopramide IV* 5 MG/ML 2 ML VIAL IV SLOW PU ONE (21:01)
[2019-01-19] MEDS ORDERED: diPHENhydraMINE IV* 50 MG/ML 1 ml VIAL (BENADRYL) IV ONE (21:02)
--- NOTE | 2019-01-19 21:12 | ED ---
Headache - HPI Summary HPI Summary: The patient is a 53 year old female who is presenting to the [facility] with a chief complaint of a headache. The patient states she does have a migraine history prior to the current episode, however, the current headache has been longer than normal. Pertinent PMHx includes Bone Cancer, Lung Cancer, and Brain Cancer. The patient states that she has had "lesions" in her brain and was treated with a gamma knife. An MRI was later taken and showed no signs of the cancer. The patient is currently on a chemotherapy treatment which she received every 3 weeks. The patient is not receiving an radiation treatment. She reports of a low grade fever which is described as a temperature of 99 (patient's baseline temperature runs around 97). Other PMHx includes HTN which is receiving medication for. The patient currently reports of a high blood pressure. Symptoms aggravated by light source. Symptoms alleviated by nothing. The pain is stated to be 9/10 in severity. - History Of Current Complaint Chief Complaint: EDAltMentalStatus Stated Complaint: NAUSEA/VOMITING PER EMS Time Seen by Provider: 01/19/19 20:51 Hx Obtained From: Patient Hx Last Menstrual Period: n/a Onset/Duration: Gradual Onset, Still Present Initially Headache Was: Initial Pain Scale(0-10)= - 9 Currently Pain Is: Current Pain Scale(0-10)= - 9 Timing: Constant Aggravating Factor: Bright Lights Allevating Factors: Nothing Associated Signs And Symptoms: Fever - Low grade rise in temperature that is higher than baseline - Allergies/Home Medications Allergies/Adverse Reactions: Allergies Allergy/AdvReac Type Severity Reaction Status Date / Time sulfamethoxazole AdvReac Severe Diarrhea Verified 11/04/18 08:55 [From Bactrim] trimethoprim [From Bactrim] AdvReac Severe Diarrhea Verified 11/04/18 08:55 Home Medications: Home Medications LORazepam [Lorazepam] 01/19/19 [History] LORazepam [Lorazepam] 01/19/19 [History] Metoprolol Tartrate TAB* [Lopressor TAB*] 01/19/19 [History] Nitrofurantoin Macrocrystal [Nitrofurantoin] 01/19/19 [History] Omeprazole 01/19/19 [History] Ondansetron HCl [Zofran 4 MG TAB] 4 mg PO TID PRN 01/19/19 [History Confirmed ] Tramadol HCl 01/19/19 [History] Zolpidem Tartrate 01/19/19 [History] amLODIPine TAB* [Norvasc 5 mg TAB*] 01/19/19 [History] predniSONE TAB* [Deltasone 20 MG TAB*] 01/19/19 [History] PMH/Surg Hx/FS Hx/Imm Hx Endocrine/Hematology History: Reports: Hx Thyroid Disease - partial thyroidectomy Denies: Hx Diabetes Cardiovascular History: Reports: Hx Hypertension Denies: Hx Pacemaker/ICD Respiratory History: Denies: Hx Asthma, Hx Chronic Obstructive Pulmonary Disease (COPD) GI History: Reports: Hx Gastroesophageal Reflux Disease, Hx Irritable Bowel Denies: Hx Ulcer History: Denies: Hx Dialysis, Hx Renal Disease Musculoskeletal History: Reports: Hx Bursitis - left hip, Hx Tendonitis - hx of - none at this time Sensory History: Reports: Hx Contacts or Glasses - glasses Denies: Hx Hearing Aid Opthamlomology History: Reports: Hx Contacts or Glasses - glasses Psychiatric History: Denies: Hx Panic Disorder - Cancer History Cancer Type, 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 APPENDECTOMY, BLADDER SUSPENSION, HYSTERECTOMY,. CARPAL TUNNEL - Lt. partial thyroidectomy. bronchoscopy/EBUS 2018 Hx Anesthesia Reactions: Yes - quite sick after thyroid removal Infectious Disease History: No Infectious Disease History: Denies: Hx Clostridium Difficile, Hx Hepatitis, Hx Human Immunodeficiency Virus (HIV), Hx of Known/Suspected MRSA, Hx Shingles, Hx Tuberculosis, Hx Known/ Suspected VRE, Hx Known/Suspected VRSA, History Other Infectious Disease, Traveled Outside the [place] in Last 30 Days - Family History Known Family History: Positive: Cardiac Disease, Hypertension, Other - Alzheimers - Social History Alcohol Use: None Substance Use Type: Reports: None Smoking Status (MU): Former Smoker Type: Cigarettes Amount Used/How Often: 1 ppd smoked approx 35 years Length of Time of Smoking/Using Tobacco: 30 yrs Have You Smoked in the Last Year: Yes Review of Systems Positive: Fever - Low grade Eyes: Negative ENT: Negative Cardiovascular: Negative Respiratory: Negative Gastrointestinal: Negative Genitourinary: Negative Musculoskeletal: Negative Skin: Negative Positive: Headache Psychological: Normal All Other Systems Reviewed And Are Negative: Yes Physical Exam - Summary Physical Exam Summary: VITAL SIGNS: Reviewed. GENERAL: Patient is a well-developed and nourished (FEMALE) who is lying comfortable in the stretcher. Patient is not in any acute respiratory distress. HEAD AND FACE: No signs of trauma. No ecchymosis, hematomas or skull depressions. No sinus tenderness. EYES: PERRLA, EOMI x 2, No injected conjunctiva, no nystagmus. EARS: Hearing grossly intact. Ear canals and tympanic membranes are within normal limits. MOUTH: Oropharynx within normal limits. NECK: Supple, trachea is midline, no adenopathy, no JVD, no carotid bruit, no c- spine tenderness, neck with full ROM. CHEST: Symmetric, no tenderness at palpation LUNGS: Clear to auscultation bilaterally. No wheezing or crackles. CVS: Mild tachycardia ABDOMEN: Soft, non-tender. No signs of distention. No rebound no guarding, and no masses palpated. Bowel sounds are normal. EXTREMITIES: FROM in all major joints, no edema, no cyanosis or clubbing. NEURO: Alert and oriented x 3. No acute neurological deficits. Speech is normal and follows commands. SKIN: Dry and warm Triage Information Reviewed: Yes Vital Signs On Initial Exam: Initial Vitals Temp Pulse Resp BP Pulse Ox 99.9 F 104 19 153/114 97 01/19/19 20:49 01/19/19 20:49 01/19/19 20:49 01/19/19 20:49 01/19/19 20:49 Vital Signs Reviewed: Yes Diagnostics - Vital Signs Vital Signs Temp Pulse Resp BP Pulse Ox 01/19/19 20:49 99.9 F 104 19 153/114 97 - Laboratory Result Diagrams: 01/19/19 21:28 01/19/19 21:28 Lab Statement: Any lab studies that have been ordered have been reviewed, and results considered in the medical decision making process. - CT Brain CT CT Interpretation Completed By: Radiologist Summary of CT Findings: Brain CT reveals 1. No acute intracranial abnormality. 2. Mild chronic small vessel ischemic disease. As per radiologist. The ED Physician has reviewed this radiology report Headache Course/Dx - Course Course Of Treatment: The patient is a 53 year old female who is presenting to the [facility] with a chief complaint of a headache. The patient is currently undergoing chemotherapy treatment and has a hx of cancers, migraines and HTN. No light source was on in the patients room as the lights were aggravating the patients symptoms. The patient received a Brain CT in the [facility]. The patients pain has improved to a 3/10 during her stay in the [facility]. Upon her stay in the [facility], the patient states that she feels better and the patient's blood pressure has improved since arrival. The patient will be discharged home with a dx of headache. - Diagnoses Provider Diagnoses: Headache Discharge - Sign-Out/Discharge Documenting (check all that apply): Patient Departure - Discharge Home Patient Received Moderate/Deep Sedation with Procedure: No - Discharge Plan Condition: Stable Disposition: HOME Patient Education Materials: General Headache (ED) Referrals: Nick Zhang JR, PA [Primary Care Provider] - Additional Instructions: RETURN TO THE EMERGENCY DEPARTMENT FOR CHANGING OR WORSENING SYMPTOMS. FOLLOW UP WITH PCP IN 1-2 DAYS. - Attestation Statements Document Initiated by Scribe: Yes Documenting Scribe: Chino Greco Provider For Whom Scribe is Documenting (Include Credential): Dr. Vee Galindo Scribe Attestation: Chino Green scribed for Dr. Vee Galindo on 01/19/19 at 2240. Status of Scribe Document: Ready
[2019-01-19 21:37] LABS: ABS Basophils 0.1 10^3/ul (0-0.2); ABS Eosinophils 0 10^3/ul (0-0.6); ABS Lymphocytes 0.7 10^3/ul (1.0-4.8); ABS Monocytes 0.3 10^3/ul (0-0.8); ABS Neutrophils 6.9 10^3/ul (1.5-7.7); ABS Nucleated RBC 0 10^3/ul; Eosinophil % 0.2 %; Hematocrit 38 % (35-47); Hemoglobin 12.8 g/dl (12.0-16.0); Lymphocyte % 8.9 %; Mean Corpuscular HGB Conc 34 g/dl (31-36); Mean Corpuscular Hemoglobin 33 pg (27-31); Mean Corpuscular Volume 96 fL (80-97); Mean Platelet Volume 6.5 fL (7.4-10.4); Nucleated Red Blood Cells % 0.1; Platelet Count 317 10^3/ul (150-450); Red Blood Count 3.93 10^6/ul (4.00-5.40); Red Cell Distribution Width 14 % (10.5-15); White Blood Count 8.1 10^3/ul (3.5-10.8)
[2019-01-19 21:45] LABS: Activated Partial Thrombo Time 29.1 seconds (26.0-36.3); INR 0.98 (0.77-1.02)
[2019-01-19 21:53] LABS: Albumin 4.2 g/dL (3.2-5.2); Albumin/Globulin Ratio 1.4 (1-3); BUN/Creatinine Ratio 14.1 (8-20); Calcium 9.3 mg/dL (8.6-10.3); EGFR African American 85.3 (>60); EGFR Non-African American 70.5 (>60); Globulin 2.9 g/dL (2-4); Potassium 3.7 mmol/L (3.5-5.0); Total Bilirubin 1.1 mg/dL (0.2-1.0); Total Protein 7.1 g/dL (6.4-8.9)
[2019-01-19] MEDS ORDERED: Ketorolac INJ* 15 MG/ML 1 ML VIAL IV PUSH ONE (21:56)
[2019-01-19 23:41] VITALS: BP 136/95
== END 2019-01-19 23:40 | disposition home or self-care (01) ==
LOC: ED 20:41
DX: R51 Headache (principal); I10 Essential (primary) hypertension; K21.9 Gastro-esophageal reflux disease without esophagitis; K58.9 Irritable bowel syndrome, unspecified; E07.9 Disorder of thyroid, unspecified; C34.90 Malignant neoplasm of unspecified part of unspecified bronchus or lung; C79.51 Secondary malignant neoplasm of bone; C79.31 Secondary malignant neoplasm of brain; Z87.891 Personal history of nicotine dependence
CPT/HCPCS: 36415; 70450; 80053; 85025; 85610; 85730; 96374; 96375; 99282; J1170; J1200; J1885; J2765